=== PATIENT | female | born 1985 | race Caucasian/White ===

== ENCOUNTER 2023-10-03 17:15 | Emergency (ER) | payer OTHER, SELFPAY ==
[2023-10-03 17:26] VITALS: BP 162/95
[2023-10-03] MEDS: REGLAN 10 MG IV (18:39)
[2023-10-03] MEDS: BENADRYL 25 MG IV (18:39)
[2023-10-03] MEDS: NSS 1000 IV (18:39)
[2023-10-03 18:46] VITALS: BP 111/78
[2023-10-03 18:53] LABS: % Basophils 0.7 % (0-2); % Eosinophils 0.8 % (0-6); % Immature Granulocytes 0.3 % (0-0.5); % Lymphocytes 34.6 % (20.5-51.1); % Monocytes 6.9 % (1.7-9.3); % Neutrophils 56.7 % (42.2-75.2); Absolute Basophils 0.1 10^3/uL (0-0.2); Absolute Eosinophils 0.1 10^3/uL (0-0.7); Absolute Lymphocytes 2.6 10^3/uL (1.2-3.4); Absolute Monocytes 0.5 10^3/uL (0.1-0.6); Absolute Neutrophils 4.3 10^3/uL (1.4-6.5); Hematocrit 37.8 % (37.0-47.0); Hemoglobin 13.3 g/dL (12.0-16.0); Mean Corp Hgb Conc. 35.2 g/dL (33.0-37.0); Mean Corpuscular Volume 85.1 fL (81.0-99.0); Mean Platelet Volume 8.8 fL (7.4-10.4); Nucleated Red Blood Cells % 0 %; Platelet Count 284 10^3/uL (130-400); Red Blood Cell Count 4.44 10^6/uL (4.20-5.40); Red Cell Dist. Width 11.9 % (11.5-14.5); White Blood Cell Count 7.5 10^3/uL (4.8-10.8)
--- NOTE | 2023-10-03 18:55 | ED.GENMED ---
History of Present Illness
<Lisa Woodard PA-C - Last Filed: 10/03/23 20:52>
General
Chief Complaint: Headache
Source: patient
Exam Limitations: none
Time Seen by Provider: 10/03/23 17:53
Travel History
Have you had any contact with someone who has COVID-19?: No
Do you have any symptoms of coronavirus? Fever > 100 degrees, chills, cough, shortness of breath, sore throat, loss of taste or smell, muscle aches, or headache?: No
History of Present Illness
History of Present Illness:
pt is a38 y/o F with h/o hypothyroidism
here with headache frontal and occipital yesterday gradually onset around mid afternoon, worsened with 3 eipsodes N/V and a few episodes diarrhea. she took doses of tylenol and motrin and felt better at night
fell asleep and was able to sleep the night
woke up today and didn't feel great but headache was minimal
she stayed home and was doing light chores around the house and then around 430 pm she lifted a laundry basket full of clothes and put it on the dryer and suddenly had 10/10 headache, all throughout her head, felt lightheaded
the symptoms much impmroved spontaneously on own within 5 minutes
but she still has 5/10 pain
was very anxious by the severity of symptoms so she came to the ER
no neck manipulation, balance problems vision loss, hearing loss, facial or arm or lleg numbness/tingling or weakness
no syncope
no fhx of aneurysms
Past History
<Lisa Woodard PA-C - Last Filed: 10/03/23 20:52>
Past History
ED Past Medical History: Hypothyroidism; Negative Asthma, HTN, Hypercholesterolemia or NIDDM
ED Past Surgical History: (�3) and Gynecological
Social History
Tobacco: Non-smoker
Alcohol: None
Personal:
Living: with family
Family History
Family History: Other (Noncontributory)
Review of Systems
<Lisa Woodard PA-C - Last Filed: 10/03/23 20:52>
Review of Systems
Allergies reviewed?: Yes
All Other Systems: Not applicable
Phy Exam
<Lisa Woodard PA-C - Last Filed: 10/03/23 20:52>
Physical Exam
Physical Exam:
GENERAL: Alert , in no apparent distress
HEAD: NCAT
EYE: pupils equal and reactive, no nystagmus, minimal photophobia
NECK: Supple,full rom, nontender
ENT: o/p clr, mmm.
CARDIAC: Regular rate and rhythm . no edema
LUNGS: Clear breath sounds bilaterally, no acute respiratory distress, no wheezes/rales/rhonchi
ABDOMEN: Soft, without focal tenderness, no r/g, no cvat
NEUROLOGICAL: Alert and orientedx 4, cn intact, no facial asymmetry, 5/5 strength in UE/LE, sensation intact, romberg neg, ambulates without assistance, neg pronator drift
SKIN: Warm and dry, skin intact.
MUSCULOSKELETAL: No edema, well perfused.
PSYCH: Normal and appropriate interaction.
Course
<Lisa Woodard PA-C - Last Filed: 10/03/23 20:52>
Orders/Labs/Results
Orders:
Orders
10/03/23 18:25
CT Head W/o Iv Contrast Urgent
Comment:
Reason For Exam: headache since yesterday, vomiting, diarrhea
0.9% Sodium Chloride 1000 ml [Nss] 1,000 ml IV BOLUS
Diphenhydramine [Benadryl] 25 mg IV NOW STA
Metoclopramide [Reglan] 10 mg IV NOW STA
10/03/23 18:26
Test Result ONCE
10/03/23 18:37
COVID-19 Antigen Urgent
Source: Nasal Swab
Complete Blood Count/With Diff Urgent
Comprehensive Metabolic Panel Urgent
HCG, Serum Qualitative Screen Urgent
Influenza A+B Rapid Molecular Urgent
GREGORIO Source: Nasal Swab
Specimen Description:
10/03/23 19:29
CT Head & Neck Angio W/wo IV Urgent
Comment:
Reason For Exam: severe headache sudden today 430 pm
10/03/23 20:12
Ketorolac [Toradol] 15 mg IV NOW STA
Abnormal Lab Results
10/03/23
18:37
Glucose 109 H mg/dl
(70-99)
10/03/23 18:37
10/03/23 18:37
Vital Signs
Initial and Last Documented VS:
Initial Vital Signs
Temp Pulse Resp BP Pulse Ox
98.0 F 67 16 162/95 98
10/03/23 17:26 10/03/23 17:26 10/03/23 17:26 10/03/23 17:26 10/03/23 17:26
Last Documented Vital Signs
Temp Pulse Resp BP Pulse Ox
98.0 F 73 16 114/77 99
10/03/23 17:26 10/03/23 18:46 10/03/23 18:46 10/03/23 19:00 10/03/23 19:15
<Jeffrey Thornton MD - Last Filed: 10/03/23 20:12>
Orders/Labs/Results
Orders:
Orders
10/03/23 18:25
CT Head W/o Iv Contrast Urgent
Comment:
Reason For Exam: headache since yesterday, vomiting, diarrhea
0.9% Sodium Chloride 1000 ml [Nss] 1,000 ml IV BOLUS
Diphenhydramine [Benadryl] 25 mg IV NOW STA
Metoclopramide [Reglan] 10 mg IV NOW STA
10/03/23 18:26
Test Result ONCE
10/03/23 18:37
COVID-19 Antigen Urgent
Source: Nasal Swab
Complete Blood Count/With Diff Urgent
Comprehensive Metabolic Panel Urgent
HCG, Serum Qualitative Screen Urgent
Influenza A+B Rapid Molecular Urgent
GREGORIO Source: Nasal Swab
Specimen Description:
10/03/23 19:29
CT Head & Neck Angio W/wo IV Urgent
Comment:
Reason For Exam: severe headache sudden today 430 pm
10/03/23 20:12
Ketorolac [Toradol] 15 mg IV NOW STA
Abnormal Lab Results
10/03/23
18:37
Glucose 109 H mg/dl
(70-99)
10/03/23 18:37
10/03/23 18:37
Vital Signs
Initial and Last Documented VS:
Initial Vital Signs
Temp Pulse Resp BP Pulse Ox
98.0 F 67 16 162/95 98
10/03/23 17:26 10/03/23 17:26 10/03/23 17:26 10/03/23 17:26 10/03/23 17:26
Last Documented Vital Signs
Temp Pulse Resp BP Pulse Ox
98.0 F 73 16 114/77 99
10/03/23 17:26 10/03/23 18:46 10/03/23 18:46 10/03/23 19:00 10/03/23 19:15
<Lisa Woodard PA-C - Last Filed: 10/03/23 20:52>
MDM/Problems Addressed
Differential Diagnosis Includes:
migraine, SAH, dissection
MDM/Problems Addressed:
38 y/o F with h/o hypothyroid
here with headache
gradual yesterday with n/v/d no fever
subsided with tylenol/motrin but then went to sleep
then today around 430 pm she was lifting laundry basket and suddenly had severe worst headache
it subsided spontaneously
she now feels 5/10 heaache
on exam she is not ill appearing, comfortable
mil dphotphobia
normal neuro
bp slightly elevated
sudden severity of pain with lifting raised suspicoun for aneurysm/sah
reassurd that the severity has improved
but d/w ed attending who recommended CTA h/n
in the meantim, treated with migraine meds, reglan, benadryl ivf
after meds, pt reassessed and headache 07/28
cta neg
will add ooradol
and d/c home
do not suspect meningitis given normal neck movement, no fever
<Lisa Woodard PA-C - Last Filed: 10/03/23 20:52>
*Critical Care Note
Total Time (30-74mins, 75-104mins- exclusive of procedures): Not Applicable
ED Attending Note
<Lisa Woodard PA-C - Last Filed: 10/03/23 20:52>
-
Portions of this chart may have been created with voice recognition software.� Occasional wrong word or��sound alike� substitutions may have occurred due to the inherent limitations of voice recognition software.
<Jeffrey Thornton MD - Last Filed: 10/03/23 20:12>
ED Attending Note
Patient seen and examined by attending physician: Yes
I performed the substantive portion of visit, reviewed & personally made and approve the management plan that is documented in note by myself or REBEKAH.: Yes
ED Attending Note:
Healthy 38-year-old female with intermittent headaches over the last 24 hours. Was not a thunderclap headache yesterday dull waxes and wanes at times more severe did sleep well. However today while lifting a basket headache became suddenly more
severe for about 5 minutes. 2 episodes of vomiting in the last 24 hours. No neurologic symptoms. No history of headaches. No fever or rash.
On exam patient is toxic in no distress. This sharp extraocular muscles intact speech normal. Front Desk Auxiliary normal. Nonfocal exam. Warm and dry. Perfusing well.
CT head and CT angio negative. Very very low suspicion for meningitis. Could be a viral syndrome tension headache or migraine. Medically stable for discharge to follow-up
Discharge Plan
Departure
Patient Disposition: Home (Routine Discharge)
Date of Disposition: 10/03/23
Time of Disposition: 20:32
Patient with high blood pressure during this ER visit?: No
Condition: Fair
Covid-19: Not Applicable
Discharge Problem:
Headache
Instructions: Headache, Adult (DC)
Prescriptions:
No Action
levothyroxine 75 MCG tablet
75 mcg PO DAILY
sertraline 50 MG tablet
50 mg PO DAILY
oxycodone-acetaminophen 5 MG/325 MG tablet
1 tab PO Q4HPRN PRN (Reason: moderate to severe pain) Qty: 6 0RF
Referrals:
Jeffrey Vences DO [Family Provider] - Follow up in 2-3 days
Stand Alone Forms: Return to Work
Activity Restrictions/Additional Instructions:
YOUR HEADACHE DOES NOT APPEAR TO BE CAUSED BY AN EMERGENCY
YOU HAD A NORMAL APPEARING HEAD CT AND NO SIGN OF BLEEDING/ANEURYSM
YOU SHOULD TAKE MOTRIN 600 MG 3 TIMES A DAY WITH FOOD FOR 2-3 DAYS TO HELP KEEP THE HEAACHE FROM RECURRING
RETURN FOR: SUDDEN WORSENING OF SYMPTOMS, FEVER, NECK STIFFNESS, SEVERE VOMITING, VISION CHANGES, OR ANY CONCERNS
Interventions
Interventions:
*Risk Screen - Suicide Last Done: 10/03/23 18:48
*General Assessment Last Done: 10/03/23 18:48
*Neglect/Abuse Screening Last Done: 10/03/23 18:48
*ED COVID-19 Vaccine History Last Done: 10/03/23 17:26
ED- Neurological Assessment Last Done: 10/03/23 18:47
[2023-10-03 19:00] VITALS: BP 114/77
[2023-10-03 19:07] LABS: ALT (SGPT) 18 U/L (0-35); AST (SGOT) 22 U/L (14-36); Albumin 4.5 g/dl (3.5-5.0); Alkaline Phosphatase 60 U/L (38-126); Blood Urea Nitrogen 9 mg/dl (7-17); Carbon Dioxide 25 mmol/L (22-30); Chloride 102 mmol/L (98-107); Glucose 109 mg/dl (70-99); Sodium 135 mmol/L (135-145); Total Bilirubin 0.6 mg/dl (0.2-1.3); Total Protein 7.3 g/dl (6.3-8.2); eGFR > 60.00
[2023-10-03 19:17] LABS: HCG, Serum Qualitative Screen Negative
[2023-10-03 19:21] LABS: COVID-19 Antigen Negative (Negative)
[2023-10-03] MEDS: TORADOL 15 MG IV (20:17)
== END 2023-10-03 20:56 | disposition home or self-care (01) ==
LOC: EMR 17:15
PROVIDERS: Physician Assistant; EMERGENCY PHYSICIAN Emergency Medicine; FAMILY PHYSICIAN Family Medicine
DX: R51.9 Headache, unspecified (principal); R11.2 Nausea with vomiting, unspecified; R19.7 Diarrhea, unspecified; R42 Dizziness and giddiness; Z11.52 Encounter for screening for COVID-19; E03.9 Hypothyroidism, unspecified; Z88.0 Allergy status to penicillin
CPT/HCPCS: 99285; 96361; 96374; 96375 ×2; 70450; 70496; 70498; 80053; 84703; 85025; 87502; 87811; Q9967

== ENCOUNTER → 2024-05-03 07:14 | Outpatient (REF) | payer OTHER, SELFPAY | LOC: HWRAD 07:14 | PROVIDERS: ATTENDING PHYSICIAN Family Medicine | DX: R10.9 Unspecified abdominal pain (principal); R63.4 Abnormal weight loss | CPT/HCPCS: 76700 ==

== ENCOUNTER → 2024-06-16 12:22 | Outpatient (REF) | payer OTHER, SELFPAY | LOC: PAVMRI 12:22 | PROVIDERS: ATTENDING PHYSICIAN Family Medicine; FAMILY PHYSICIAN Family Medicine | DX: K76.9 Liver disease, unspecified (principal); R63.4 Abnormal weight loss | CPT/HCPCS: 74183; A9575 ==